=== PATIENT | male | born 1975 | race Caucasian/White ===

== ENCOUNTER 2021-08-05 22:02 | Emergency (ER) | payer OTHER, SELFPAY ==
[2021-08-05 22:08] VITALS: BP 160/105; PULSE 88; RESP 17; TEMP 36.8; O2SAT 98; BMI 26.4
--- NOTE | 2021-08-05 22:15 | ED_ITS ---
HPI - Abdominal Pain General: Chief Complaint: Abdominal Pain Stated Complaint: Appendex Leaking\ADB Pain Time Seen by Provider: 08/05/21 22:15 History of Present Illness: HPI narrative: 45-year-old male patient comes in today with complaints of right lower quadrant abdominal pain. Patient reports significant nausea. Patient denies any vomiting or diarrhea. Patient does report a temperature this morning. 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 Patient denies any other chronic medical problems or routine medications. Associated Symptoms: Reports nausea Review of Systems GI: Reports: abdominal pain and nausea Physical Exam Const: COMMON NORMALS: average body habitus GENERAL APPEARANCE: cooperative NUTRITIONAL APPEARANCE: overweight HENMT: COMMON NORMALS: normocephalic HEAD & SCALP: normocephalic THROAT: posterior oropharynx normal Lymph: LYMPHATIC: no lymphadenopathy noted Resp: COMMON NORMALS: normal respiratory effort and clear to auscultation bilaterally AUSCULTATION: clear to auscultation bilaterally Cardio: COMMON NORMALS: regular rate and regular rhythm RATE: regular rate RHYTHM: regular rhythm GI: COMMON NORMALS: Soft to palpation AUSCULTATION: Yes Hyperactive bowel sounds present PALPATION: Yes Soft to palpation and Yes Tenderness to palpation present (GI) Details: RLQ : COMMON NORMALS: Yes no CVA tenderness BLADDER/KIDNEY EXAM: Yes no CVA tenderness PENIS: normal penis SCROTUM: Yes Cremasteric reflex present Back/Pelvis: COMMON NORMALS: no CVA tenderness Course Vital Signs: Vital signs: Vital Signs Temperature 98.2 F 08/05/21 22:08 Pulse Rate 88 08/05/21 22:08 Respiratory Rate 20 H 08/05/21 23:37 Blood Pressure 160/105 08/05/21 22:08 Pulse Oximetry 98 08/05/21 23:37 MDM - Abdominal Pain MDM Narrative: Medical decision making narrative: 45-year-old male patient comes in with right lower quadrant abdominal pain for the last 3 days. Patient reports some changes in his bowel movements and some nausea. On exam patient has some right lower quadrant abdominal tenderness, hyperactive bowel sounds, afebrile. Negative psoas sign. Negative rebound tenderness. Positive guarding. Differential diagnosis includes but not limited to gastroenteritis, appendicitis, inguinal hernia. Laboratory values were unremarkable. CT of the abdomen pelvis noted no signs of appendicitis or other acute abnormality. Incidentally there was noted a small right lung nodule patient was notified of this for recommendations of follow-up due to patient's smoking habits. Patient was given 1 L of IV fluid and a total of 6 mg of morphine with good results for abdominal pain. Recommended patient drink plenty of fluids activity as tolerated. Recommend patient follow-up with primary care for further instruction and evaluation. Reviewed red flags such as high fever, blood in vomit or stool, or uncontrolled pain for reasons to return to the ER. Patient reported understanding and agreed to plan. Spouse was present and reported understanding. Lab Data: Labs: Lab Results 08/05/21 08/05/21 22:50 22:50 WBC 7.3 10^3/uL 10^3/ uL (4.0-10.0) RBC 5.30 10^6/uL 10^6 /uL (4.1-5.3) Hgb 14.9 g/dL g/dL (11.7-16.6) Hct 45.7 % % (42.0-52.0) MCV 86.2 fl fl (80-94) MCH 28.1 pg pg (28.0-34.0) MCHC 32.6 g/dL g/dL (30.0-36.0) RDW 13.2 % % (12.1-15.1) Plt Count 321 10^3/cmm 10^3 /cmm (130-400) MPV 9.6 fL fL (7.4-10.4) Neut % (Auto) 61.4 % % Lymph % (Auto) 26.7 % % [place] % (Auto) 8.7 % % Eos % (Auto) 2.2 % % Baso % (Auto) 0.6 % % Neut # (Auto) 4.46 10^3/uL 10^3 /uL (1.8-7.7) Lymph # (Auto) 1.9 10^3/uL 10^3/ uL (0.8-4.8) [place] # (Auto) 0.6 10^3/uL 10^3/ uL (0.2-0.9) Eos # (Auto) 0.2 10^3/uL 10^3/ uL (0.0-0.8) Baso # (Auto) 0.0 10^3/uL 10^3/ uL (0.0-0.1) Nucleated RBC % (a uto) 0 % % Nucleated RBCs # 0.0 /100WBC /100W BC Sodium 139 mmol/L mmol/L (136-145) Potassium 3.9 mmol/L mmol/L (3.5-5.1) Chloride 104 mmol/L mmol/L (98-107) Carbon Dioxide 22 mmol/L mmol/L (22-29) Anion Gap 16.9 (5-19) BUN 20 mg/dL mg/dL (6-20) Creatinine 1.1 mg/dL mg/dL (0.7-1.2) GFR Calculation 73.1 mL/min L mL/ min (90-130) Glucose 92 mg/dL mg/dL (65-115) Calculated Osmolal ity 290 mOsm/kg mOsm/ kg (285-295) Calcium 8.9 mg/dL mg/dL (8.5-10.5) Total Bilirubin 0.2 mg/dL mg/dL (0.15-1.2) AST 24 U/L U/L (0-40) ALT 28 U/L U/L (0-41) Alkaline Phosphata se 49 IU/L IU/L (40-130) Total Protein 6.8 g/dL g/dL (6.6-8.7) Albumin 4.2 g/dL g/dL (3.5-5.2) Globulin 2.6 g/dL g/dL (1.3-4.6) Lipase 32 U/L U/L (13-60) Discharge Plan Discharge Patient Disposition: Home Clinical Impression: Incidental lung nodule Abdominal pain Qualifiers: Abdominal location: right lower quadrant Qualified Code(s): R10.31 - Right lower quadrant pain Condition: Stable Prescriptions: New hydrocodone-acetaminophen 5-325 mg tablet 1 tab PO Q6H PRN (Reason: pain (scale score 7-10)) Qty: 7 RF: 0 ondansetron 4 mg tablet,disintegrating 4 mg PO Q8H PRN (Reason: nausea and vomiting) Qty: 7 RF: 0 Discharge Orders: Discharge ED (Routine); Ordered 08/06/21 Ordered By: Efe Walton Discharge Diet: Usual diet Discharge Activity: Increase activity as tolerated Patient Instructions: Abdominal Pain (ED), Opioid Safety Activity Restrictions/Additional Instructions: Home and rest. Drink plenty of fluids. Follow-up with primary care for further instruction and evaluation. Return to the ER for new concerns or worsening symptoms such as persistent vomiting, uncontrolled abdominal pain, high fever greater than 100.4, or blood in vomit or stool. Follow-up with primary care regarding abnormal lung nodule for further recommendations and treatment. Coding Level of Care Code ED Director [employer] for [employer] Fwd Exam Detailed
--- NOTE | 2021-08-05 22:16 | CTR_ITS ---
PROCEDURE INFORMATION: Exam: CT Abdomen And Pelvis With Contrast Exam date and time: 08/05/2021 10:16 PM Age: 45 years old Clinical indication: Nausea; Abdominal pain; Localized; Right lower quadrant (rlq); Additional info: Rlq pain TECHNIQUE: Imaging protocol: Computed tomography of the abdomen and pelvis with contrast. Radiation optimization: All CT scans at this facility use at least one of these dose optimization techniques: automated exposure control; mA and/or kV adjustment per patient size (includes targeted exams where dose is matched to clinical indication); or iterative reconstruction. Contrast material: OMNI 300; Contrast volume: 95 ml; Contrast route: INTRAVENOUS (IV); COMPARISON: No relevant prior studies available. RADIATION DOSE METRICS: Total DLP (mGy-cm): 1579.59 FINDINGS: Lungs: On image #3, series 2, there is a 5 mm indeterminate, noncalcified nodule in the anterior right middle lobe. Small granuloma is likely, other etiologies/neoplasm not entirely excluded. Eventual comparison with any available prior exams will be helpful. For patients at low risk (minimal or absent history of smoking and of other known risk factors), no routine follow-up is indicated. For patients at high risk (history of smoking or of other known risk factors), consider optional CT Chest at 12 months. (Reference: Gaye) The lung bases otherwise appear essentially clear. No pleural fluid. Liver: Unremarkable. Gallbladder and bile ducts: The gallbladder is partially contracted. No visible gallstones by CT. No biliary tree dilation. Pancreas: Unremarkable. Spleen: Unremarkable. Adrenal glands: Unremarkable. Kidneys and ureters: Unremarkable. Stomach and bowel: No significant bowel distention. There are no CT findings to strongly suggest diverticulitis. Appendix: The appendix is visualized and appears normal. Intraperitoneal space: No free intraperitoneal air, or ascites. Vasculature: No evidence for abdominal aortic aneurysm. Lymph nodes: No retroperitoneal adenopathy. Urinary bladder: Unremarkable as visualized. Reproductive: Essentially unremarkable for age. Bones/joints: There is bilateral L5 spondylolysis, with mild grade 1 spondylolisthesis. Moderate degenerative disc space narrowing at L5-S1. Soft tissues: No significant acute finding. CT/CT abdomen pelvis w con* [id number] IMPRESSION: 1. Normal appendix. 2. No free air or bowel distention. 3. Small right lung nodule, details above. 4. Other findings discussed above. REFERENCES: Gaye Joiner, et al. Guidelines for Management of Incidental Pulmonary Nodules Detected on CT Images: From the Fleischner Society 2017. Radiology. 2017;284(1):228-243.
[2021-08-05] MEDS: ondansetron 2 mg/ML SDV 2 mL 4 MG IVP (22:30)
[2021-08-05] MEDS: sodium chloride 0.9% 1,000 ML 999 ML IV (22:45)
[2021-08-05] MEDS: iohexol 300 mg/mL 100 mL Btl IV (23:03)
[2021-08-05 23:04] LABS: Basophils % 0.6 %; Eosinophils # 0.2 10^3/uL (0.0-0.8); Eosinophils % 2.2 %; Hematocrit 45.7 % (42.0-52.0); Hemoglobin 14.9 g/dL (11.7-16.6); Lymphocytes # 1.9 10^3/uL (0.8-4.8); Lymphocytes % 26.7 %; Mean Corpuscular HGB Conc 32.6 g/dL (30.0-36.0); Mean Corpuscular Hemoglobin 28.1 pg (28.0-34.0); Mean Corpuscular Volume 86.2 fl (80-94); Mean Platelet Volume 9.6 fL (7.4-10.4); Monocytes # 0.6 10^3/uL (0.2-0.9); Monocytes % 8.7 %; Neutrophils # 4.46 10^3/uL (1.8-7.7); Neutrophils % 61.4 %; Nucleated Red Blood Cells % 0 %; Platelet Count 321 10^3/cmm (130-400); Red Cell Distribution Width 13.2 % (12.1-15.1); White Blood Count 7.3 10^3/uL (4.0-10.0)
[2021-08-05 23:25] LABS: Alanine Aminotransferase 28 U/L (0-41); Albumin Level 4.2 g/dL (3.5-5.2); Alkaline Phosphatase 49 IU/L (40-130); Anion Gap 16.9 (5-19); Aspartate Amino Transferase 24 U/L (0-40); Blood Urea Nitrogen 20 mg/dL (6-20); Calcium 8.9 mg/dL (8.5-10.5); Carbon Dioxide 22 mmol/L (22-29); Chloride 104 mmol/L (98-107); Globulin 2.6 g/dL (1.3-4.6); Glomerular Filtration Rate 73.1 mL/min (90-130); Glucose 92 mg/dL (65-115); Lipase 32 U/L (13-60); Osmolality Calculated 290 mOsm/kg (285-295); Potassium 3.9 mmol/L (3.5-5.1); Sodium 139 mmol/L (136-145); Total Bilirubin 0.2 mg/dL (0.15-1.2); Total Protein 6.8 g/dL (6.6-8.7)
[2021-08-05 23:37] VITALS: RESP 20; O2SAT 98
[2021-08-05] MEDS: morphine 4 mg/mL SDV 1 mL 2 MG IVP (23:37)
[2021-08-05 23:43] VITALS: BP 134/70; RESP 18; O2SAT 96
[2021-08-06 00:13] VITALS: BP 139/81; RESP 18; O2SAT 97
[2021-08-06 00:43] VITALS: BP 124/67; RESP 18; O2SAT 96
[2021-08-06 01:10] VITALS: RESP 16; O2SAT 98
[2021-08-06] MEDS: morphine 4 mg/mL SDV 1 mL IVP (01:10)
[2021-08-06] MEDS: ketorolac 30 mg/mL INJ 15 MG IVP (01:15)
[2021-08-06 01:37] VITALS: BP 130/74; RESP 18; O2SAT 96
== END 2021-08-06 01:25 | disposition home or self-care (01) ==
PROVIDERS: Emergency Medicine; Emergency Provider Nurse Practitioner Family
DX: R10.31 Right lower quadrant pain (principal); R91.1 Solitary pulmonary nodule
CPT/HCPCS: 74177; 80053; 83690; 85025; 96361; 96374; 96375; 96376; 99284; J1885; J2270; J2405; J7030; Q9967

== ENCOUNTER → 2021-08-26 14:08 | Outpatient (BNVA) | payer OTHER, SELFPAY | PROVIDERS: Visit Provider Family Medicine | DX: N50.811 Right testicular pain (principal); R10.31 Right lower quadrant pain; Z13.220 Encounter for screening for lipoid disorders; Z13.6 Encounter for screening for cardiovascular disorders; Z76.89 Persons encountering health services in other specified circumstances | CPT/HCPCS: 80061 ==

== ENCOUNTER → 2025-03-09 10:52 | Outpatient (BNVA) | payer BC, SELFPAY | PROVIDERS: PCP Family Medicine; Visit Provider Family Medicine | DX: E78.2 Mixed hyperlipidemia (principal) | CPT/HCPCS: 80053; 80061; 84403 ==